=== PATIENT | male | born 1985 | race African-American/Black ===

== ENCOUNTER 2021-02-16 16:44 | Emergency (ER) | payer SELFPAY ==
[~2021-02-16] VITALS: Ht 167.6 cm; Wt 95.0 kg
[2021-02-16 16:49] VITALS: BP 108/61
[2021-02-16] MEDS ORDERED: IBUPROFEN 600MG TABLET PO STA (21:38)
== END 2021-02-16 22:56 | disposition home or self-care (01) ==
LOC: ER 16:44
DX: R07.9 Chest pain, unspecified (principal)
CPT/HCPCS: 99281

== ENCOUNTER 2021-12-09 12:44 | Emergency (ER) | payer SELFPAY | END 2021-12-09 13:53 | disposition left against medical advice (07) | LOC: ER 12:44 | DX: Z53.21 Procedure and treatment not carried out due to patient leaving prior to being seen by health care provider (principal) ==